=== PATIENT | male | born 1970 | race Caucasian/White ===

== ENCOUNTER 2019-12-21 06:46 | Inpatient (IN) ==
[2019-12-21] MEDS ORDERED: Ondansetron 4 MG/2 ML VIAL ONE (07:04)
[2019-12-21] MEDS ORDERED: *HR* Propofol 200 MG/20 ML VIAL IVP ONE ×2 (07:04→09:31)
[2019-12-21] MEDS ORDERED: *HR* Midazolam HCl 2 MG/2 ML VIAL ONE (07:04)
[2019-12-21] MEDS ORDERED: *HR* FentaNYL (PF) 100 MCG/2 ML VIAL ONE (07:04)
[2019-12-21] MEDS ORDERED: Lidocaine -MPF 2% 2 ML VIAL ONE (07:04)
[2019-12-21] MEDS ORDERED: Dexamethasone 4 MG/ML VIAL ONE (07:04)
[2019-12-21] MEDS ORDERED: *HR* Succinylcholine 200 MG/10 ML VIAL IVP ONE (07:04)
[2019-12-21] MEDS ORDERED: Albuterol 2.5 MG/3 ML NEBULIZER IH PRN (07:16)
[2019-12-21] MEDS ORDERED: Clindamycin 900 MG/50 ML 900 MG/50 ML IV.SOLN IVPB ONE (07:16)
[2019-12-21] MEDS ORDERED: Ethanol\\Acetic Acid\\Na Ace\\Ben 1,000 ML IRRIG.SOLN IR ONE (07:19)
[2019-12-21] MEDS ORDERED: Ringers Solution, Lactated 1,000 ML IVC SCH ×2 (07:30→11:08)
[2019-12-21] MEDS ORDERED: Ropivacaine/PF 0.5% 30 ML VIAL ONE (07:46)
[2019-12-21] MEDS ORDERED: ROPIVACAINE/PF/NS 0.25% 1 EACH SYRINGE INTRAART ONE (07:46)
[2019-12-21] MEDS ORDERED: Lidocaine -MPF 4% 5 ML AMPUL ONE (07:50)
[2019-12-21] MEDS ORDERED: Ondansetron 4 MG/2 ML VIAL IVP ONE (07:54)
[2019-12-21] MEDS ORDERED: *HR* OxyCODONE Immed Rel 5 MG TABLET PO PRN ×2 (07:54→11:08)
[2019-12-21] MEDS ORDERED: *HR* Labetalol 20 MG/4 ML SYRINGE IVP ONE (08:50)
[2019-12-21] MEDS ORDERED: EPHEDrine 50 MG/ML VIAL ONE (09:13)
[2019-12-21] MEDS ORDERED: *HR* PHENYLEPHRINE 1,000 MCG/10 ML SYRINGE IVP ONE (09:23)
[2019-12-21] MEDS: *HR* HYDROmorphone PF 0.5 MG/0.5 ML SYRINGE IVP PRN ×2 (10:25→10:37)
[2019-12-21] MEDS ORDERED: Naloxone 0.4 MG/ML INJ IVP PRN (11:08)
[2019-12-21] MEDS ORDERED: Sennosides 8.6 MG TABLET PO PRN (11:08)
[2019-12-21] MEDS ORDERED: Ondansetron 4 MG/2 ML VIAL IVP PRN (11:08)
[2019-12-21] MEDS ORDERED: MOM Conc 10 ML UD.LIQ PO PRN (11:08)
[2019-12-21] MEDS ORDERED: *HR* OxyCODONE/APAP 5/325 TABLET PO PRN (11:08)
[2019-12-21] MEDS ORDERED: *HR* LORazepam 2 MG/ML VIAL IVP PRN ×3 (13:38)
[2019-12-21] MEDS ORDERED: Nicotine 21 MG PATCH.TD24 TD SCH (13:45)
[2019-12-21 15:03] VITALS: BP 159/82
[2019-12-21] MEDS ORDERED: Clindamycin 900 MG/50 ML 900 MG/50 ML IV.SOLN IVPB SCH (16:00)
[2019-12-21 16:50] LABS: Hematocrit 37.7 % (37.5-50.1)
[2019-12-21 16:53] LABS: Hemoglobin 12.5 g/dL (12.9-16.9)
[2019-12-21] MEDS ORDERED: *HR* Enoxaparin 30 MG/0.3 ML SYRINGE SQ SCH ×2 (18:00)
[2019-12-22] MEDS ORDERED: Thiamine (B-1) 100 MG TABLET PO SCH (09:00)
[2019-12-22] MEDS ORDERED: Folic Acid 1 MG TABLET PO SCH (09:00)
== END 2019-12-21 18:00 | disposition home or self-care (01) | DRG 322 ==
LOC: SAMDAY 06:46 → 3NENU 10:57
PROVIDERS: ADMIT Orthopaedic Surgery; ATTEND Orthopaedic Surgery